=== PATIENT | male | born 1960 | race Caucasian/White ===

== ENCOUNTER → 2018-04-12 | Outpatient (CLI) | payer OTHER ==
[~2018-04-12] MED LIST: LASIX 20 MG TAB20 MG PO; LISINOPRIL10 MG PO; NAPROSYN500 MG PO; PAXIL10 MG PO; ZANTAC 150MG T150 M1 PO
== END ==
LOC: M.ULTRA 07:50
DX: R22.31 Localized swelling, mass and lump, right upper limb (principal); Z87.891 Personal history of nicotine dependence